=== PATIENT | female | born 1990 | race Two or more races ===

== ENCOUNTER 2017-03-26 12:39 | Emergency (ER) | payer SELFPAY ==
[~2017-03-26] VITALS: Ht 154.9 cm; Wt 49.9 kg
[2017-03-26 12:58] VITALS: BP 113/76
[2017-03-26] MEDS ORDERED: IBUPROFEN 800 MG TAB PO ONE (13:45)
== END 2017-03-26 14:09 | disposition home or self-care (01) ==
LOC: ER 12:44
DX: S92.352A Displaced fracture of fifth metatarsal bone, left foot, initial encounter for closed fracture (principal); W10.9XXA Fall (on) (from) unspecified stairs and steps, initial encounter; Y93.89 Activity, other specified; Y92.89 Other specified places as the place of occurrence of the external cause; Y99.8 Other external cause status
CPT/HCPCS: 29515; 73630